=== PATIENT | female | born 1985 | race Caucasian/White ===

== ENCOUNTER 2021-08-14 05:53 | Inpatient (IN) ==
[2021-08-14] MEDS ORDERED: MEPERIDINE 50 MG/1 ML VIAL IV PRN (06:05)
[2021-08-14] MEDS ORDERED: ONDANSETRON 4 MG/2 ML VIAL IV PRN ×2 (06:05→16:46)
[2021-08-14] MEDS: LACTATED RINGERS 1,000 ML IV SCH ×2 (06:24→11:56)
[2021-08-14] MEDS ORDERED: OXYTOCIN/LR 20 UNIT/1,000 ML BAG IV SCH (06:30)
[2021-08-14 06:44] LABS: Basophils % 0.4 % (0.0-0.8); Eosinophils # 0.1 10*3/uL (0.0-0.87); Eosinophils % 0.9 % (0.00-10.9); Hematocrit 40.2 VOL% (35.7-47.0); Hemoglobin 12.6 GM/DL (12.0-16.0); Immature Granulocytes % 0.3 %; Immature Granulocytes Absolute 0.03 #; Lymphocytes # 2.1 10*3/uL (1.4-4.0); Lymphocytes % 22.4 % (21.3-54.2); Mean Corpuscular HGB Conc 31.3 GM/DL (32-36); Mean Corpuscular Volume 84.8 FL (87-102); Mean Platelet Volume 9.6 FL (9.6-12.0); Monocytes % 8.7 % (1.7-12.7); Neutrophils % 67.3 % (38.7-73.9); Platelet Count 309 T/CUMM (130-400); Red Blood Count 4.74 MC/CUMM (3.8-5.5); Red Cell Distribution Width 19.2 % (9.3-17.3); White Blood Count 9.3 T/CUMM (4-12)
[2021-08-14] MEDS ORDERED: LACTATED RINGERS 500 ML IV ONE (08:49)
[2021-08-14] MEDS ORDERED: diphenhydrAMINE 50 MG/1 ML VIAL IV PRN ×2 (08:49)
[2021-08-14] MEDS ORDERED: hydrOXYzine HCL 25 MG/1 ML VIAL IM PRN (08:49)
[2021-08-14] MEDS ORDERED: PROMETHAZINE 25 MG/1 ML VIAL IM ONE (08:49)
[2021-08-14] MEDS ORDERED: ePHEDrine 50 MG/ML VIAL IV PRN (08:49)
[2021-08-14] MEDS ORDERED: FAMOTIDINE 20 MG/2 ML VIAL IV ONE (08:49)
[2021-08-14] MEDS ORDERED: CITRIC ACID/SODIUM CITRATE 30 ML UDCUP PO ONE (08:49)
[2021-08-14] MEDS ORDERED: NALOXONE 0.4 MG/ML VIAL IV PRN (08:49)
[2021-08-14] MEDS ORDERED: fentaNYL 2 MCG/ROPIV 0.2% EPID 100 ML EPIDURAL SCH (09:00)
[2021-08-14] MEDS ORDERED: METHYLERGONOVINE 0.2 MG/1 ML AMP ONE (15:18)
[2021-08-14] MEDS ORDERED: miSOPROStoL 200 MCG TABLET ONE (15:18)
[2021-08-14] MEDS ORDERED: TRANEXAMIC ACID 1,000 MG/10 ML VIAL ONE (15:18)
[2021-08-14] MEDS ORDERED: SODIUM CHLORIDE 0.9% 0 ML IV ONE (15:18)
[2021-08-14] MEDS ORDERED: CARBOPROST TROMETHAMINE 250 MCG/ML AMP IM ONE (15:18)
[2021-08-14 15:42] LABS: Bilirubin,Urine Negative (Negative); Blood, Urine Negative (Negative); Glucose,Urine (UA) Negative (Negative); Ketones,Urine 80 mg/dL (Negative); Mucus,Urine Occasional /LPF (Occasional); Nitrite,Urine Negative (Negative); Protein,Urine Negative; RBC,Urine 2 /HPF (0-4); Urine Appearance CLEAR (Clear); Urine Color Yellow (Yellow); Urine Specific Gravity 1.015 (1.001-1.035); Urine Urobilinogen < 2.0 EU/DL (0.2-1.0)
[2021-08-14] MEDS ORDERED: DIPH/TET/ACEL PERT BOOSTER VACCINE 0.5 ML VIAL IM ONE (16:46)
[2021-08-14] MEDS ORDERED: BISACODYL 10 MG SUPP RECTAL PRN (16:46)
[2021-08-14] MEDS ORDERED: HYDROCORTISONE 2.5% RECTAL CREAM 30 GM TUBE TOP PRN (16:46)
[2021-08-14] MEDS ORDERED: RHO(D) IMMUNE GLOBULIN 300 MCG SYRINGE IM ONE (16:46)
[2021-08-14] MEDS ORDERED: OXYTOCIN/LR 20 UNIT/1,000 ML BAG IV ONE (16:46)
[2021-08-14] MEDS ORDERED: oxyCODONE/ACETAMINOPHEN 5-325 MG TABLET PO PRN ×2 (16:46)
[2021-08-14] MEDS ORDERED: WITCH HAZEL PADS 100/JAR TOP PRN (16:46)
[2021-08-14] MEDS ORDERED: ACETAMINOPHEN 325 MG TABLET PO PRN (16:46)
[2021-08-14] MEDS ORDERED: MEASLES/MUMPS/RUBELLA VACCINE 0.5 ML VIAL SUBCUT ONE (16:46)
[2021-08-14] MEDS ORDERED: LANOLIN 50% CREAM 0.3 OZ TUBE TOP PRN (16:46)
[2021-08-14] MEDS ORDERED: BENZOCAINE 20%/MENTHOL 0.5% SPRAY 56 GM CAN TOP PRN (16:46)
[2021-08-14] MEDS ORDERED: METHYLERGONOVINE 0.2 MG/1 ML AMP IM ONE (16:50)
[2021-08-14 17:12] LABS: Cord Arterial Blood HCO3 20.2 MMOL/L
[2021-08-14 17:15] LABS: Cord Venous Blood HCO3 23.9 MMOL/L; Cord Venous Blood PCO2 34.3 MMHG; Cord Venous Blood PO2 43.1
[2021-08-14] MEDS: DOCUSATE SODIUM 100 MG CAPSULE PO SCH (21:16)
[2021-08-14] MEDS: IBUPROFEN 800 MG TABLET PO PRN (22:51)
[2021-08-15 05:25] LABS: Basophils # 0.1 10*3/uL (0.0-0.2); Basophils % 0.4 % (0.0-0.8); Eosinophils # 0.1 10*3/uL (0.0-0.87); Eosinophils % 0.8 % (0.00-10.9); Hematocrit 34.7 VOL% (35.7-47.0); Immature Granulocytes % 0.8 %; Lymphocytes # 2.1 10*3/uL (1.4-4.0); Lymphocytes % 15.9 % (21.3-54.2); Mean Corpuscular HGB Conc 31.7 GM/DL (32-36); Mean Corpuscular Volume 83.6 FL (87-102); Mean Platelet Volume 9.5 FL (9.6-12.0); Monocytes % 8.3 % (1.7-12.7); Neutrophils % 73.8 % (38.7-73.9); Platelet Count 267 T/CUMM (130-400); Red Blood Count 4.15 MC/CUMM (3.8-5.5); Red Cell Distribution Width 18.8 % (9.3-17.3); White Blood Count 13.1 T/CUMM (4-12)
[2021-08-15] MEDS: IBUPROFEN 800 MG TABLET PO PRN ×2 (06:36→14:25)
[2021-08-15] MEDS: DOCUSATE SODIUM 100 MG CAPSULE PO SCH ×2 (08:25→20:43)
[2021-08-15] MEDS ORDERED: ACETAMINOPHEN 500 MG TABLET PO ONE (08:35)
[2021-08-15] MEDS ORDERED: ASPIRIN CHEW 81 MG TABLET PO ONE (08:38)
[2021-08-16] MEDS: IBUPROFEN 800 MG TABLET PO PRN (04:35)
[2021-08-16 07:52] VITALS: BP 129/77
[2021-08-16] MEDS: DOCUSATE SODIUM 100 MG CAPSULE PO SCH (08:33)
== END 2021-08-16 13:03 | disposition home or self-care (01) | DRG 807 ==
LOC: N.LD 05:53 → N.OB 20:30
PROVIDERS: ADMIT Obstetrics & Gynecology; ATTEND Obstetrics & Gynecology